=== PATIENT | female | born 1980 | race Two or more races ===

== ENCOUNTER 2021-05-06 16:36 | Emergency (ER) | payer OTHER ==
[~2021-05-06] VITALS: Ht 160 cm; Wt 89.8 kg
[2021-05-06] MEDS ORDERED: DAFLONEX-XL 11300 MG (16:58)
[2021-05-06] MEDS ORDERED: COZAAR25 MG (16:58)
[2021-05-06] MEDS ORDERED: HYZAAR 100-12.1 EACH (16:58)
[2021-05-06] MEDS ORDERED: TOPROL XL50 M1 (16:58)
[2021-05-06] MEDS ORDERED: ATORVASTATIN CA10 MG (16:58)
[2021-05-06] MEDS ORDERED: METFORMIN HCL500 MG (16:59)
[2021-05-06] MEDS ORDERED: FEOSOL325 MG (16:59)
[2021-05-06] MEDS ORDERED: XYZAL5 MG (16:59)
== END 2021-05-06 20:45 | disposition home or self-care (01) ==
LOC: ER 16:36
DX: M26.69 Other specified disorders of temporomandibular joint (principal)